=== PATIENT | female | born 1985 | race American Indian/Alaskan Native ===

== ENCOUNTER 2018-01-31 08:40 | Emergency (ER) | payer MEDICAID ==
[2018-01-31] MEDS ORDERED: TORADOL IM ONE (09:48)
[2018-01-31] MEDS ORDERED: FLEXERIL PO ONE (09:48)
[2018-01-31] MEDS ORDERED: CATAPRES PO ONE (09:51)
--- NOTE | 2018-01-31 09:54 | Emergency Department Report ---
ED Neck Pain/Injury HPI - General Chief Complaint: Neck Pain/Injury Stated Complaint: HEAD PRESSURE Time Seen by Provider: 01/31/18 09:31 Mode of arrival: Ambulatory Limitations: No Limitations - History of Present Illness Initial Comments: This is a 32-year-old female nontoxic, well nourished in appearance, no acute signs of distress presents to the ED with c/o of neck pain and upper back pain that radiates to head. Patient stated that for the past months to be having this intermittent neck pains and was seen at [facility] on 2 different occasions. Patient denies thunderclap headache. Patient stated that the hospital prescribed the patient Robaxin and Tylenol No. 3 but patient stated that she did not did not take any Robaxin as she stated that she read a contraindication. Patient denies any nuchal rigidity. Patient denies any blurry vision, chest pain, strength of breath, fever, chills, nausea, vomiting, numbness or tingling. Patient denies any neck trauma. Patient stated that she also received a x-ray to cervical spine in and was normal. Patient denies any past medical history besides hypertension which she stated takes amlodipine but has not been taking for the last couple of days as her doctor instructed her not to take it. Patient states allergies to ciprofloxacin, Benadryl, erythromycin and penicillin. MD Complaint: neck pain, upper back pain -: month(s) (1) Place: home Severity: mild Severity scale (0 -10): 8 Quality: aching Consistency: intermittent Improves With: immobilization, rest supine Worsens With: movement of neck Associated Symptoms: headache. denies: fever, numbness, tingling, weakness, vertigo, difficulty walking, swollen glands, difficulty swallowing, nausea, vomiting Treatments Prior to Arrival: none - Related Data Home Medications Medication Instructions Recorded Confirmed Last Taken Pumpkin Seed Extract/Soy Germ [Azo 07/03/16 06/30/16 Bladder Control Capsule] Previous Rx's Medication Instructions Recorded Last Taken Type Sulfamethoxazole/Trimethoprim 1 each PO BID #14 tablet 07/04/16 Unknown Rx [Bactrim DS TAB] Ibuprofen [Motrin] 600 mg PO Q8H PRN #30 tablet 01/31/18 Unknown Rx methOCARBAMOL [Robaxin TAB] 500 mg PO BID #10 tab 01/31/18 Unknown Rx Allergies Allergy/AdvReac Type Severity Reaction Status Date / Time ciprofloxacin Allergy Itching Verified 07/03/16 23:17 diphenhydramine HCl Allergy Unknown Verified 02/18/14 23:12 [From Benadryl] erythromycin base Allergy Shortness Verified 02/18/14 23:12 [Erythromycin Base] of Breath latex Allergy Itching Verified 02/18/14 23:12 Penicillins Allergy Hives Verified 02/18/14 23:12 ED Review of Systems ROS: Stated complaint: HEAD PRESSURE Other details as noted in HPI Constitutional: denies: chills, fever Eyes: denies: eye pain, eye discharge, vision change ENT: denies: ear pain, throat pain Respiratory: denies: cough, shortness of breath, wheezing Cardiovascular: denies: chest pain, palpitations Endocrine: no symptoms reported Gastrointestinal: denies: abdominal pain, nausea, diarrhea Genitourinary: denies: urgency, dysuria, discharge Musculoskeletal: back pain. denies: joint swelling, arthralgia Skin: denies: rash, lesions Neurological: headache. denies: weakness, paresthesias Psychiatric: denies: anxiety, depression Hematological/Lymphatic: denies: easy bleeding, easy bruising ED Past Medical Hx - Past Medical History Hx Hypertension: Yes Additional medical history: Vaginal delivery x 1 - Surgical History Additional Surgical History: uterince polyps removed - Social History Smoking Status: Current Every Day Smoker Substance Use Type: Alcohol - Medications Home Medications: Home Medications Medication Instructions Recorded Confirmed Last Taken Type Pumpkin Seed Extract/Soy Germ [Azo 07/03/16 06/30/16 History Bladder Control Capsule] Sulfamethoxazole/Trimethoprim 1 each PO BID #14 tablet 07/04/16 Unknown Rx [Bactrim DS TAB] Ibuprofen [Motrin] 600 mg PO Q8H PRN #30 tablet 01/31/18 Unknown Rx methOCARBAMOL [Robaxin TAB] 500 mg PO BID #10 tab 01/31/18 Unknown Rx ED Physical Exam - General Limitations: No Limitations General appearance: alert, in no apparent distress - Head Head exam: Present: atraumatic, normocephalic - Eye Eye exam: Present: normal appearance, PERRL, EOMI Pupils: Present: normal accommodation - ENT ENT exam: Present: normal exam, mucous membranes moist - Neck Neck exam: Present: normal inspection, full ROM. Absent: tenderness, meningismus, lymphadenopathy - Respiratory Respiratory exam: Present: normal lung sounds bilaterally. Absent: respiratory distress, wheezes, rales, rhonchi, stridor, chest wall tenderness, accessory muscle use, decreased breath sounds, prolonged expiratory - Cardiovascular Cardiovascular Exam: Present: regular rate, normal rhythm, normal heart sounds. Absent: bradycardia, tachycardia, irregular rhythm, systolic murmur, diastolic murmur, rubs, gallop - GI/Abdominal GI/Abdominal exam: Present: soft, normal bowel sounds. Absent: distended, tenderness, guarding, rebound, rigid, diminished bowel sounds - Rectal Rectal exam: Present: deferred - Extremities Exam Extremities exam: Present: normal inspection, full ROM, normal capillary refill - Back Exam Back exam: Present: normal inspection, full ROM, paraspinal tenderness ( cervical region). Absent: tenderness, CVA tenderness (R), CVA tenderness (L), muscle spasm, vertebral tenderness, rash noted - Expanded Back Exam Expanded Back exam: Absent: saddle anesthesia Back exam: Negative Straight Leg Raising: Left, Right - Neurological Exam Neurological exam: Present: alert, oriented X3, CN II-XII intact, normal gait - Expanded Neurological Exam Expanded Patient oriented to: Present: person, place, time Cranial nerves: EOM's Intact: Normal, Gag Reflex: Normal, Facial Sensation: Normal Cerebellar function: Finger to Nose: Normal Upper motor neuron: Pronator Drift: Normal, Sensory Extinction: Normal Sensory exam: Upper Extremity Light Touch: Normal, Upper Extremity Pin Prick: Normal, Upper Extremity Temperature: Normal, UE 2 Point Discrimination: Normal, Lower Extremity Light Touch: Normal, Lower Extremity Pin Prick: Normal, Lower Extremity Temperature: Normal, LE 2 Point Discrimination: Normal Motor strength exam: RUE: 5, LUE: 5, RLE: 5, LLE: 5 Best Eye Response (Minna): (4) open spontaneously Best Motor Response (Min[place]): (6) obeys commands Best Verbal Response ([place]): (5) oriented Minna Total: 15 - Psychiatric Psychiatric exam: Present: normal affect, normal mood - Skin Skin exam: Present: warm, dry, intact, normal color. Absent: rash ED Course Vital Signs 01/31/18 01/31/18 09:13 10:52 Temperature 97.8 F Pulse Rate 84 Respiratory 17 Rate Blood Pressure 159/111 Blood Pressure 145/99 [Left] O2 Sat by Pulse 98 Oximetry - Reevaluation(s) Reevaluation #1: 01/31/18 09:57 Patient is speaking in full sentences with no signs of distress noted. ED Medical Decision Making - Medical Decision Making This is a 32-year-old female that presents with cervical muscle strain. Patient stable and was examined by me. There is no nuchal rigidity. Patient is neurologically stable. Patient did receive a Toradol and Flexeril which he stated his symptoms has resolved and subsiding. Patients is at bedside and stated he will drive her home after discharge due to drowsiness of flexeril. Patient is discharged with Robaxin and Motrin. Patient also received Catapres in the ED. Blood pressure decreased. She was instructed to continue taking amlodipine and to follow-up with a private primary care doctor for a reevaluation of blood pressure. She was instructed to keep a diary of blood pressure. Patient was referred to Follow-up with a primary care doctor in 3-5 days or if symptoms worsen and continue return to emergency room as soon as possible. At time of discharge, the patient does not seem toxic or ill in appearance. No acute signs of distress noted. Patient agrees to discharge treatment plan of care. No further questions noted by the patient. This chart is dictated with using [employer] Critical care attestation.: If time is entered above; I have spent that time in minutes in the direct care of this critically ill patient, excluding procedure time. ED Disposition Clinical Impression: Hypertension Qualifiers: Hypertension type: unspecified Qualified Code(s): I10 - Essential (primary) hypertension Cervical muscle strain Qualifiers: Encounter type: initial encounter Qualified Code(s): S16.1XXA - Strain of muscle, fascia and tendon at neck level, initial encounter Disposition: - TO HOME OR SELFCARE Is pt being admited?: No Does the pt Need Aspirin: No Condition: Stable Instructions: Ibuprofen (By mouth), Methocarbamol (By mouth), Muscle Strain (ED ), Hypertension (ED) Additional Instructions: Follow-up with a primary care doctor in 3-5 days or if symptoms worsen and continue return to emergency room as soon as possible. Prescriptions: Ibuprofen [Motrin] 600 mg PO Q8H PRN #30 tablet PRN Reason: Pain methOCARBAMOL [Robaxin TAB] 500 mg PO BID #10 tab Referrals: PRIMARY CARE, [Primary Care Provider] - 3-5 Days DILLON ODOM MD [Staff Physician] - 3-5 Days [facility] [Outside] - 3-5 Days [facility] [Outside] - 3-5 Days Forms: Work/School Release Form(ED)
[2018-01-31 10:54] VITALS: BP 145/99
== END 2018-01-31 11:04 | disposition home or self-care (01) ==
LOC: ED 08:40
DX: S16.1XXA Strain of muscle, fascia and tendon at neck level, initial encounter (principal); I10 Essential (primary) hypertension; F17.200 Nicotine dependence, unspecified, uncomplicated; Z88.1 Allergy status to other antibiotic agents; Z88.8 Allergy status to other drugs, medicaments and biological substances; Z91.040 Latex allergy status; Z88.0 Allergy status to penicillin; X58.XXXA Exposure to other specified factors, initial encounter; Y93.89 Activity, other specified; Y92.89 Other specified places as the place of occurrence of the external cause; Y99.8 Other external cause status
CPT/HCPCS: 96372; 99282; J1885

== ENCOUNTER 2018-02-21 23:42 | Emergency (ER) | payer MEDICAID ==
[2018-02-22 00:23] VITALS: BP 145/103
[2018-02-22] MEDS ORDERED: MOTRIN PO ONE (03:49)
--- NOTE | 2018-02-22 03:51 | Emergency Department Report ---
HPI - General Chief Complaint: Extremity Problem,Nontraumatic Time Seen by Provider: 02/22/18 03:31 - HPI HPI: Patient is a 32-year-old female comes in the ED complaining of lower left leg pain that began yesterday. Patient says she was not doing any hard lifting or any traumatic exercises when pain started. Patient denies any recent injury or travel. She states pain is in her left posterior knee and sometimes felt on her ankle ED Past Medical Hx - Past Medical History Hx Hypertension: Yes Additional medical history: Vaginal delivery x 1 - Surgical History Additional Surgical History: uterince polyps removed - Social History Smoking Status: Current Every Day Smoker Substance Use Type: Alcohol - Medications Home Medications: Home Medications Medication Instructions Recorded Confirmed Last Taken Type Pumpkin Seed Extract/Soy Germ [Azo 07/03/16 06/30/16 History Bladder Control Capsule] Sulfamethoxazole/Trimethoprim 1 each PO BID #14 tablet 07/04/16 Unknown Rx [Bactrim DS TAB] methOCARBAMOL [Robaxin TAB] 500 mg PO BID #10 tab 01/31/18 Unknown Rx Cyclobenzaprine [Flexeril] 10 mg PO QHS PRN #20 tablet 02/22/18 Unknown Rx Ibuprofen [Motrin 600 MG tab] 600 mg PO Q8H PRN #30 tablet 02/22/18 Unknown Rx ED Review of Systems ROS: Stated complaint: LT LEG PAIN Other details as noted in HPI Constitutional: denies: chills, fever Eyes: denies: eye pain, eye discharge, vision change ENT: denies: ear pain, throat pain Respiratory: denies: cough, shortness of breath, wheezing Cardiovascular: denies: chest pain, palpitations Endocrine: no symptoms reported Gastrointestinal: denies: abdominal pain, nausea, diarrhea Genitourinary: denies: urgency, dysuria, discharge Musculoskeletal: myalgia. denies: back pain, joint swelling, arthralgia Skin: denies: rash, lesions Neurological: denies: headache, weakness, paresthesias Psychiatric: denies: anxiety, depression Hematological/Lymphatic: denies: easy bleeding, easy bruising Physical Exam - Physical Exam Vital Signs: Vital Signs 02/22/18 00:16 Temperature 98.7 F Pulse Rate 92 H Respiratory 18 Rate Blood Pressure 145/103 O2 Sat by Pulse 100 Oximetry Physical Exam: GENERAL: Alert and oriented x3, no apparent distress, Normal Gait, atraumatic. NECK: Supple. Non edematous, No carotid bruits. No lymphadenopathy or thyromegaly. No C-spine tenderness LUNGS: Symetrical with respiration, No wheezing, no rales or crackles, CTAB. HEART: S1, S2 present, regular rate and rhythm without murmur, no rubs, no gallops. Non tender to palpation EXTREMITIES/MUSCULOSKELETAL: No cyanosis, clubbing, rash, lesions or edema. Full ROM bilaterally. UE/LE Pulses 2+ bilaterally. LE and UE 5+ strength bilaterally, straight leg raise negative bilaterally. Nicolle sign negative, nontender to palpation, no swelling, no ecchymosis NEUROLOGIC: The patient is cooperative with no focal neurologic deficits. SKIN: Warm and dry, No lesions, No ulceration or induration present. ED Course Vital Signs 02/22/18 00:16 Temperature 98.7 F Pulse Rate 92 H Respiratory 18 Rate Blood Pressure 145/103 O2 Sat by Pulse 100 Oximetry ED Medical Decision Making - Medical Decision Making 32-year-old female presents with left lower leg pain. ED course: Motrin given for pain, d-dimer ordered Discussed the patient is most likely joint, muscle related. Vital signs are stable patient in acute distress Discussed follow-up with primary care physician in 3-5 days No neurological deficit. Palpation signs on instructions given. D-dimer is negative. I discussed this with the patient. Normal signs of DVT. Patient to follow up as discussed Critical care attestation.: If time is entered above; I have spent that time in minutes in the direct care of this critically ill patient, excluding procedure time. ED Disposition Clinical Impression: Myalgia Leg pain, posterior Qualifiers: Laterality: left Qualified Code(s): M79.605 - Pain in left leg Disposition: -01 TO HOME OR SELFCARE Is pt being admited?: No Does the pt Need Aspirin: No Condition: Stable Instructions: Arthralgia (ED), Musculoskeletal Pain (ED), Trigger Point Pain ( ED) Additional Instructions: Make sure to follow up with the primary care physician as discussed. Take all your medications as you've been prescribed. If you have any worsening symptoms or develop new symptoms please return to ED immediately. Prescriptions: Cyclobenzaprine [Flexeril] 10 mg PO QHS PRN #20 tablet PRN Reason: Muscle Spasm Ibuprofen [Motrin 600 MG tab] 600 mg PO Q8H PRN #30 tablet PRN Reason: Pain Referrals: PRIMARY CARE, [Primary Care Provider] - 3-5 Days IZZY ROSA MD [Referring] - 3-5 Days [facility] [Outside] - 3-5 Days Forms: Accompanied Note, Work/School Release Form(ED) Time of Disposition: 04:48
== END 2018-02-22 04:50 | disposition home or self-care (01) ==
LOC: ED 23:42
DX: M79.1 Myalgia (principal); M79.662 Pain in left lower leg; I10 Essential (primary) hypertension; F17.200 Nicotine dependence, unspecified, uncomplicated
CPT/HCPCS: 36415; 85379; 99283